=== PATIENT | female | born 1950 | race Caucasian/White ===

== ENCOUNTER → 2017-04-22 | Day surgery (SDC) | payer MEDICARE, OTHER ==
[~2017-04-22] VITALS: Ht 162.5 cm; Wt 90.7 kg
[~2017-04-22] MED LIST: ASPIRIN325 MG PO; BIAXIN500 MG PO; CLARITIN10 MG PO; DOCUSATE SODIU250 MG PO; LOTREL 10 MG-201 CAP PO; LYRICA150 MG PO; METFORMIN1000 MG PO; OMEPRAZOLE MAGN20 MG PO; PERCOCET 325 MG1 TA2 PO; PERCOCET 7.5-31 EACH PO; VITAMIN D350000 UNIT PO
--- NOTE | ~2017-04-22 | O ---
[place], [place] OPERATIVE NOTE NAME: NATHALIA JAVIER UNIT #: [id number] ROOM: DOCTOR: LETA CROWE MD BIRTHDATE: [birth year] DOS: 04/22/2017 HISTORY OF PRESENT ILLNESS: A 67-year-old patient who presented with chief complaint of dyspepsia, guaiac positivity on aspirin. PAST SURGICAL HISTORY: Hysterectomy, cholecystectomy, tonsillectomy, right total knee. PAST MEDICAL HISTORY: Hypertension, diabetes, hypothyroidism. FAMILY HISTORY: Brother with colonic carcinoma. ALLERGIES: To no known medication. SOCIAL HISTORY: Nonsmoker, nonalcohol consumer. PROCEDURE: Today's procedure part of investigation is colonoscopy, panendoscopy. PREMEDICATION: Versed and Diprivan. SCOPE: Olympus folding colonoscope 10L video. REPORT: After putting the patient in left lateral position and application of lubricant to the scope, the scope was introduced. Thereafter, under direct visualization, I advanced through the length of colon with difficulty. Difficulty being tortuosity of colon, adhesions because of multiple abdominal surgeries and extreme tension on the left side colon and pressure. However, scope was negotiated to beyond the hepatic flexure. Sessile polypoid lesion in sigmoid colon was identified. This was removed with piecemeal polypectomy. The scope was gradually withdrawn. The patient extubated, tolerated the procedure well. IMPRESSION: Tortuous colon, sigmoid colon polyp, sessile, status post piecemeal polypectomy. This patient may benefit from a completion barium enema in future. This is going to be organized. Furthermore, we are going to proceed with panendoscopy. The patient has presented with chief complaint of guaiac positivity, dyspepsia, undergoing investigation. PROCEDURE: Today's procedure part of investigation is panendoscopy plus biopsy. PREMEDICATION: Versed and Diprivan. SCOPE: Olympus UpRace gastroscope Q10 video. REPORT: After putting the patient in left lateral position and application of lubricant to the scope, the scope was introduced. Thereafter, under direct visualization, advanced through the length of esophagus without difficulty. [place], [place] OPERATIVE NOTE NAME: NATHALIA JAVIER UNIT #: [id number] ROOM: DOCTOR: LETA CROWE MD BIRTHDATE: [birth year] Distal esophageal short segment Liang was biopsied. Small hiatal hernia noticed. Gastric pouch was entered. Gastritis seen. Duodenal bulb, second and third part within normal limit. The patient extubated, tolerated the procedure well. Antral biopsies and distal esophageal biopsies were obtained. IMPRESSION: Short segment Liang esophagus, gastritis, status post biopsy, small hiatal hernia. PLAN AND DISCUSSION: We are going to proceed with omeprazole 20 mg 1 daily. Thank you very much indeed. LETA CROWE MD CM:OPRECORD:OPERATIVE NOTE [id number] LETA CROWE MD 04/22/17 0900 interface
[2017-04-22 07:13] VITALS: BP 150/99
[2017-04-22 08:11] VITALS: BP 162/82
[2017-04-22 08:25] VITALS: BP 149/92
[2017-04-22 08:41] VITALS: BP 153/76
== END | disposition home or self-care (01) ==
LOC: SDC 04-17 08:45
DX: K63.5 Polyp of colon (principal); K29.50 Unspecified chronic gastritis without bleeding; I10 Essential (primary) hypertension; Z96.651 Presence of right artificial knee joint; Z90.710 Acquired absence of both cervix and uterus; Z90.49 Acquired absence of other specified parts of digestive tract; K21.9 Gastro-esophageal reflux disease without esophagitis; Z79.84 Long term (current) use of oral hypoglycemic drugs; Z79.899 Other long term (current) drug therapy; E78.5 Hyperlipidemia, unspecified; Z82.49 Family history of ischemic heart disease and other diseases of the circulatory system; E11.40 Type 2 diabetes mellitus with diabetic neuropathy, unspecified; E03.9 Hypothyroidism, unspecified; Z80.0 Family history of malignant neoplasm of digestive organs; K63.89 Other specified diseases of intestine

== ENCOUNTER 2017-09-05 12:30 | Emergency (ER) | payer MEDICARE, OTHER ==
[~2017-09-05] VITALS: Ht 162.5 cm; Wt 91.6 kg
== END 2017-09-05 14:11 | disposition home or self-care (01) ==
LOC: ED 12:30
DX: S09.90XA Unspecified injury of head, initial encounter (principal); S40.211A Abrasion of right shoulder, initial encounter; Z79.82 Long term (current) use of aspirin; Z79.899 Other long term (current) drug therapy; W01.0XXA Fall on same level from slipping, tripping and stumbling without subsequent striking against object, initial encounter; Y93.89 Activity, other specified; Y92.89 Other specified places as the place of occurrence of the external cause; Y99.8 Other external cause status

== ENCOUNTER → 2019-06-29 | Day surgery (SDC) | payer MEDICARE, OTHER ==
[~2019-06-29] VITALS: Ht 162.5 cm; Wt 90.7 kg
[~2019-06-29] MED LIST changes: +AMLODIPINE-BEN1 EACH PO; +GLIPIZIDE5 MG PO; +LYRICA150 M1 PO; -LYRICA150 MG PO; +PRAVASTATIN SOD20 MG PO
[2019-06-29 09:10] VITALS: BP 136/76
[2019-06-29 10:43] VITALS: BP 116/72
[2019-06-29 10:57] VITALS: BP 124/67
[2019-06-29 11:09] VITALS: BP 132/70
== END | disposition home or self-care (01) ==
LOC: SDC 06-24 11:45
DX: Z12.11 Encounter for screening for malignant neoplasm of colon (principal); D12.0 Benign neoplasm of cecum; I10 Essential (primary) hypertension; I25.10 Atherosclerotic heart disease of native coronary artery without angina pectoris; E11.40 Type 2 diabetes mellitus with diabetic neuropathy, unspecified; Z86.010 Personal history of colon polyps; Z90.49 Acquired absence of other specified parts of digestive tract; Z98.890 Other specified postprocedural states; Z80.0 Family history of malignant neoplasm of digestive organs; Z82.49 Family history of ischemic heart disease and other diseases of the circulatory system

== ENCOUNTER 2021-08-17 11:09 | Inpatient (IN) | payer MEDICARE, OTHER ==
[~2021-08-17] VITALS: Ht 162.5 cm; Wt 92.3 kg
[2021-08-17] VITALS (11 sets, daily range): BP systolic 86–131; BP diastolic 54–83
[2021-08-17] MEDS ORDERED: AMLODIPINE BESY10 MG PO (11:45)
[2021-08-17] MEDS ORDERED: TRULICITY0.75 MG/0. SC (11:47)
[2021-08-17] MEDS ORDERED: PREGABALIN200 MG PO (11:47)
[2021-08-17] MEDS ORDERED: LIDOCAINE15 GM T (11:47)
[2021-08-17] MEDS ORDERED: ROSUVASTATIN CA10 MG PO (11:49)
[2021-08-17] MEDS ORDERED: VALSARTAN80 MG PO (11:49)
[2021-08-17] MEDS ORDERED: GLIPIZIDE10 M2 PO (11:49)
[2021-08-17] MEDS ORDERED: ELIQUIS5 M1 PO (11:49)
[2021-08-17 11:51] LABS: BASO # 0.1 10*3/uL (0.0-0.1); EOS # 0.3 10*3/uL (0.0-0.4); EOS % 3.1 % (1.0-4.0); HEMATOCRIT 43.6 % (37.0-47.0); LYMPH # 2.9 10*3/uL (1.3-4.4); LYMPH % 32.5 % (27.0-41.0); MEAN CELL VOLUME 87.2 fl (81.0-99.0); MEAN CORPUSCULAR HGB 28.4 pg (27.0-31.0); MEAN CORPUSCULAR HGB CONC 32.6 g/dl (33.0-37.0); MEAN PLATELET VOLUME 10.6 fl (9.6-12.3); MONO # 0.8 10*3/uL (0.1-1.0); MONO % 8.7 % (3.0-9.0); NEUT # 4.9 10*3/uL (2.3-7.9); NEUT % 54.5 % (47.0-73.0); PLATELET COUNT AUTOMATED 315 10*3/uL (130-400); RED CELL DISTRI WIDTH 14.1 % (0-14.5); WHITE BLOOD COUNT 8.9 10*3/uL (4.8-10.8)
[2021-08-17] MEDS ORDERED: METOPROLOL TART50 M1 PO (11:51)
[2021-08-17 12:03] LABS: ACT PARTIAL THROMBO TIME 33.9 SECONDS (20.0-32.1); INTERNATIONAL NORM RATIO 1.1 (2.0-3.5)
[2021-08-17 12:07] LABS: ALKALINE PHOSPHATASE 103 U/L (45-117); BUN 15 mg/dl (7-24); CHLORIDE 109 mmol/L (98-107); CREATININE 0.61 mg/dL (0.55-1.02); POTASSIUM 4.3 mmol/L (3.5-5.1); SGOT/AST 13 IU/L (3-35); SGPT/ALT 22 U/L (12-78); SODIUM 139 mmol/L (136-145); TOTAL PROTEIN 6.9 gm/dL (6.4-8.2)
[2021-08-18] VITALS: BP 99/64
[2021-08-18 07:17] LABS: BASO # 0.1 10*3/uL (0.0-0.1); BASO % 1.2 % (0.0-1.0); EOS # 0.3 10*3/uL (0.0-0.4); EOS % 3.9 % (1.0-4.0); HEMATOCRIT 43.5 % (37.0-47.0); LYMPH % 34.5 % (27.0-41.0); MEAN CELL VOLUME 88.4 fl (81.0-99.0); MEAN CORPUSCULAR HGB 28.3 pg (27.0-31.0); MEAN PLATELET VOLUME 10.7 fl (9.6-12.3); MONO # 0.8 10*3/uL (0.1-1.0); MONO % 9.7 % (3.0-9.0); NEUT # 4.3 10*3/uL (2.3-7.9); NEUT % 50.5 % (47.0-73.0); PLATELET COUNT AUTOMATED 308 10*3/uL (130-400); RED BLOOD COUNT 4.92 10*6/uL (4.10-5.10); RED CELL DISTRI WIDTH 14.2 % (0-14.5); WHITE BLOOD COUNT 8.6 10*3/uL (4.8-10.8)
[2021-08-18 07:56] LABS: BUN 15 mg/dl (7-24); CHLORIDE 108 mmol/L (98-107); CHOLESTEROL 177 mg/dL (<200); POTASSIUM 4.4 mmol/L (3.5-5.1); SGOT/AST 7 IU/L (3-35); SGPT/ALT 20 U/L (12-78); SODIUM 139 mmol/L (136-145); TOTAL PROTEIN 6.4 gm/dL (6.4-8.2); TRIGLYCERIDES 417 mg/dl (<150)
[2021-08-18 07:58] LABS: ALKALINE PHOSPHATASE 98 U/L (45-117)
[2021-08-18 08:00] VITALS: BP 120/67
[2021-08-18 12:00] VITALS: BP 99/55
[2021-08-18 16:00] VITALS: BP 106/59
[2021-08-18 20:00] VITALS: BP 126/63
[2021-08-19] VITALS (8 sets, daily range): BP systolic 99–123; BP diastolic 54–85
[2021-08-19 06:05] LABS: BUN 20 mg/dl (7-24); CHLORIDE 107 mmol/L (98-107); CREATININE 0.61 mg/dL (0.55-1.02); POTASSIUM 4.4 mmol/L (3.5-5.1); SODIUM 139 mmol/L (136-145)
[2021-08-19 06:07] LABS: BASO # 0.1 10*3/uL (0.0-0.1); BASO % 1.1 % (0.0-1.0); EOS # 0.3 10*3/uL (0.0-0.4); EOS % 3.6 % (1.0-4.0); HEMATOCRIT 41.6 % (37.0-47.0); LYMPH # 3.8 10*3/uL (1.3-4.4); LYMPH % 40.3 % (27.0-41.0); MEAN CELL VOLUME 88.5 fl (81.0-99.0); MEAN CORPUSCULAR HGB 28.7 pg (27.0-31.0); MEAN CORPUSCULAR HGB CONC 32.5 g/dl (33.0-37.0); MONO # 0.9 10*3/uL (0.1-1.0); MONO % 9.8 % (3.0-9.0); NEUT # 4.3 10*3/uL (2.3-7.9); PLATELET COUNT AUTOMATED 309 10*3/uL (130-400); RED CELL DISTRI WIDTH 14.3 % (0-14.5); WHITE BLOOD COUNT 9.5 10*3/uL (4.8-10.8)
[2021-08-20] VITALS: BP 137/65
[2021-08-20 08:00] VITALS: BP 127/66
[2021-08-20 12:00] VITALS: BP 134/69
[2021-08-20 16:00] VITALS: BP 122/68
== END 2021-08-20 18:25 | disposition home or self-care (01) | DRG 309 ==
LOC: ED 11:09 → EDHOLD 14:19 → 5E 14:19
PROVIDERS: Emergency Medicine; Internal Medicine; ADMIT Internal Medicine; ATTEND Emergency Medicine
PROC: B24BZZ4 Ultrasonography of Heart with Aorta, Transesophageal (ICD-10-PCS; 2021-08-19)
PROC: 5A2204Z Restoration of Cardiac Rhythm, Single (ICD-10-PCS; 2021-08-19)
PROC: 4A02XM4 Measurement of Cardiac Total Activity, External Approach (ICD-10-PCS; principal; 2021-08-20)
PROC: 3E073KZ Introduction of Other Diagnostic Substance into Coronary Artery, Percutaneous Approach (ICD-10-PCS; 2021-08-20)
DX: I48.91 Unspecified atrial fibrillation (principal); E44.0 Moderate protein-calorie malnutrition; E11.65 Type 2 diabetes mellitus with hyperglycemia; E87.8 Other disorders of electrolyte and fluid balance, not elsewhere classified; E83.42 Hypomagnesemia; E78.5 Hyperlipidemia, unspecified; I10 Essential (primary) hypertension; Z79.1 Long term (current) use of non-steroidal anti-inflammatories (NSAID); Z68.34 Body mass index [BMI] 34.0-34.9, adult; Z79.899 Other long term (current) drug therapy; Z79.84 Long term (current) use of oral hypoglycemic drugs

== ENCOUNTER → 2023-12-28 | Outpatient (CLI) | payer OTHER ==
[~2023-12-28] MED LIST changes: +AMLODIPINE BESY10 MG PO; +ELIQUIS5 M1 PO; +GLIPIZIDE10 M2 PO; +LIDOCAINE15 GM T; +METOPROLOL TART50 M1 PO; +PREGABALIN200 MG PO; +ROSUVASTATIN CA10 MG PO; +TRULICITY0.75 MG/0. SC; +VALSARTAN80 MG PO
== END | disposition home or self-care (01) ==
LOC: RESCLI 02:18
PROVIDERS: ATTEND Student in an Organized Health Care Education/Training Program
DX: E11.9 Type 2 diabetes mellitus without complications (principal); I48.91 Unspecified atrial fibrillation; I10 Essential (primary) hypertension; E78.5 Hyperlipidemia, unspecified; E66.9 Obesity, unspecified; G89.29 Other chronic pain; E11.40 Type 2 diabetes mellitus with diabetic neuropathy, unspecified; Z82.49 Family history of ischemic heart disease and other diseases of the circulatory system; Z98.890 Other specified postprocedural states; Z79.899 Other long term (current) drug therapy